=== PATIENT | male | born 1965 | race Caucasian/White ===

== ENCOUNTER 2021-08-27 15:02 | Inpatient (IN) | payer BC ==
[2021-08-27] MEDS ORDERED: MAGNESIUM CITRATE 300 ML BOTTLE PO PRN (17:01)
[2021-08-27] MEDS ORDERED: NALOXONE (NARCAN) HCL 4 MG/0.1 ML SPRAY NS PRN (17:01)
[2021-08-27] MEDS ORDERED: MENTHOL/PHENOL 1 EACH UD MM PRN (17:01)
[2021-08-27] MEDS ORDERED: BISMUTH SUBSALICYLATE 524 MG/30 ML PO PRN (17:01)
[2021-08-27] MEDS ORDERED: IBUPROFEN 400 MG TABLET (FP) PO PRN (17:01)
[2021-08-27] MEDS ORDERED: ONDANSETRON *ODT* 4 MG TABLET SL PRN (17:01)
[2021-08-27] MEDS ORDERED: MAG HYDROX/AL HYDROX/SIMETH 30 ML UNIT-DOSE CUP PO PRN (17:01)
[2021-08-27] MEDS ORDERED: ACETAMINOPHEN 325 MG TABLET (FP) PO PRN ×2 (17:01)
[2021-08-27] MEDS ORDERED: MAGNESIUM HYDROX 2400MG/30ML ORAL SUSPENSION 30 ML CUP PO PRN (17:01)
[2021-08-27] MEDS ORDERED: NICOTINE 10 MG CARTRIDGE (INHALER) IH PRN (17:01)
[2021-08-27] MEDS ORDERED: methaDONE HCL 10 MG TABLET (FOR DETOX USE ONLY) PO ONE (17:01)
[2021-08-27 17:58] VITALS: BMI 29.5
[2021-08-27] MEDS: hydrOXYzine PAMOATE 25 MG CAPSULE (FP) PO SCH ×2 (18:38→22:19)
[2021-08-27] MEDS: THIAMINE HCL 100 MG TABLET (FP) PO SCH (22:19)
[2021-08-27] MEDS: MELATONIN 5 MG TABLETS PO SCH (22:19)
[2021-08-27] MEDS: METHOCARBAMOL 500 MG TABLET PO PRN (22:20)
[2021-08-28] MEDS: hydrOXYzine PAMOATE 25 MG CAPSULE (FP) PO SCH ×5 (06:16→22:17)
[2021-08-28] MEDS ORDERED: methaDONE HCL 10 MG TABLET (FOR DETOX USE ONLY) ONE (09:26)
[2021-08-28] MEDS: PRENATAL VITAMINS W/ FOLIC ACID TABLET (FP) PO SCH (10:04)
[2021-08-28] MEDS: METHOCARBAMOL 500 MG TABLET PO PRN (10:04)
[2021-08-28] MEDS ORDERED: diazePAM 5 MG TABLET PO ONE (12:46)
[2021-08-28 13:15] LABS: HEMATOCRIT 46.2 % (35.4-49); HEMOGLOBIN 15.9 GM/dL (11.7-16.9); MCH 32.2 pg (25.7-33.7); MCHC 34.3 g/dl (32.0-35.9); MEAN CELL VOLUME 93.8 fl (80-96); MEAN PLT VOLUME 8.1 fl (7.5-11.1); PLATELET COUNT 172 10^3/uL (134-434); RBC 4.93 M/mm3 (4.00-5.60); RDW 14.6 % (11.9-15.9); WHITE BLOOD COUNT 7.1 K/mm3 (4.0-10.0)
[2021-08-28 13:36] LABS: BLOOD UREA NITROGEN 26.1 mg/dL (7-18)
[2021-08-28 13:39] LABS: CREATININE 0.8 mg/dL (0.55-1.3)
[2021-08-28] MEDS: MELATONIN 5 MG TABLETS PO SCH (22:17)
[2021-08-28] MEDS: THIAMINE HCL 100 MG TABLET (FP) PO SCH (22:17)
[2021-08-29] MEDS: hydrOXYzine PAMOATE 25 MG CAPSULE (FP) PO SCH ×5 (05:53→22:13)
[2021-08-29] MEDS ORDERED: methaDONE HCL 10 MG TABLET (FOR DETOX USE ONLY) PO ONE (10:00)
[2021-08-29] MEDS: PRENATAL VITAMINS W/ FOLIC ACID TABLET (FP) PO SCH (10:16)
[2021-08-29] MEDS: METHOCARBAMOL 500 MG TABLET PO PRN (10:17)
[2021-08-29] MEDS: cloNIDine HCL 0.1 MG TABLET PO PRN ×2 (10:17→22:14)
[2021-08-29] MEDS ORDERED: ONDANSETRON *ODT* 4 MG TABLET SL ONE (12:56)
[2021-08-29] MEDS ORDERED: DICYCLOMINE HCL 20 MG TABLET PO ONE (12:56)
[2021-08-29] MEDS ORDERED: DICYCLOMINE HCL 10 MG CAPSULE PO ONE (13:30)
[2021-08-29] MEDS: FAMOTIDINE 20 MG TABLET PO SCH ×2 (13:48→22:13)
[2021-08-29] MEDS: MELATONIN 5 MG TABLETS PO SCH (22:13)
[2021-08-29] MEDS: THIAMINE HCL 100 MG TABLET (FP) PO SCH (22:13)
[2021-08-30] MEDS: hydrOXYzine PAMOATE 25 MG CAPSULE (FP) PO SCH ×5 (06:10→22:19)
[2021-08-30] MEDS ORDERED: methaDONE HCL 10 MG TABLET (FOR DETOX USE ONLY) ONE (09:47)
[2021-08-30] MEDS: FAMOTIDINE 20 MG TABLET PO SCH ×2 (10:10→22:18)
[2021-08-30] MEDS: PRENATAL VITAMINS W/ FOLIC ACID TABLET (FP) PO SCH (10:11)
[2021-08-30] MEDS: cloNIDine HCL 0.1 MG TABLET PO PRN ×2 (10:56→17:48)
[2021-08-30 13:12] LABS: BLOOD UREA NITROGEN 25.8 mg/dL (7-18)
[2021-08-30] MEDS ORDERED: ONDANSETRON *ODT* 4 MG TABLET SL ONE (15:25)
[2021-08-30] MEDS: MELATONIN 5 MG TABLETS PO SCH (22:19)
[2021-08-30] MEDS: THIAMINE HCL 100 MG TABLET (FP) PO SCH (22:19)
[2021-08-31] MEDS: hydrOXYzine PAMOATE 25 MG CAPSULE (FP) PO SCH ×3 (06:32→13:37)
[2021-08-31 09:58] VITALS: BP 149/79; PULSE 65; TEMP 98
[2021-08-31] MEDS ORDERED: methaDONE HCL 10 MG TABLET (FOR DETOX USE ONLY) PO ONE (10:00)
[2021-08-31] MEDS: METHOCARBAMOL 500 MG TABLET PO PRN (10:33)
[2021-08-31] MEDS: FAMOTIDINE 20 MG TABLET PO SCH (10:33)
[2021-08-31] MEDS: PRENATAL VITAMINS W/ FOLIC ACID TABLET (FP) PO SCH (10:33)
[2021-08-31] MEDS: cloNIDine HCL 0.1 MG TABLET PO PRN (13:37)
== END 2021-08-31 14:28 | disposition home or self-care (01) | DRG 897 ==
LOC: YASAS 15:02 → Y6N 17:36
PROVIDERS: ADMIT Allergy & Immunology; ATTEND Allergy & Immunology
PROC: HZ2ZZZZ Detoxification Services for Substance Abuse Treatment (ICD-10-PCS; principal; 2021-08-27)
DX: F11.23 Opioid dependence with withdrawal (principal); F10.230 Alcohol dependence with withdrawal, uncomplicated; F13.230 Sedative, hypnotic or anxiolytic dependence with withdrawal, uncomplicated; F17.210 Nicotine dependence, cigarettes, uncomplicated; R79.89 Other specified abnormal findings of blood chemistry; R73.9 Hyperglycemia, unspecified
CPT/HCPCS: 36415; 80053; 82947; 84520; 85027; 86780; 93005; 93010; C9803; J0735; Q0162; U0003; U0005